=== PATIENT | male | born 1960 | race Two or more races ===

== ENCOUNTER 2018-01-12 07:50 | Inpatient (IN) | payer BC ==
[~2018-01-12] VITALS: Ht 180.3 cm; Wt 73.9 kg
[2018-01-12 08:30] VITALS: BP 108/71
--- NOTE | 2018-01-12 08:40 | NUR ---
MS RN OPENING NOTE PATIENT CAME IN FOR DAY SURGERY AT 0800. SCHEDULED TO HAVE THE PROCEDURE AT 1000. AMBULATORY, ALERT ORIENTED X4, IN NO APPARENT DISTRESS OR DISCOMFORT AT THIS TIME. RESPIRATION EVEN AND UNLABORED. ABLE TO VERBALIZE NEEDS. PATIENT MADE COMFORTABLE IN BED. ALL BELONGINGS ARE WITH PATIENT'S . COMPREHENSIVE ASSESSMENT COMPLETE. VITAL SIGNS TAKEN AND RECORDED. HISTORY REVIEWED. IV ACCESS ESTABLISHED ON THE LEFT HAND, 20G, SL. PATENT AND INTACT, FLASHED WITH NS. CONSENT SIGNED AND PLACED IN CHART. CHECKLIST COMPLETE. NPO STATUS VERIFIED. AT BEDSIDE, SAFETY MEASURES IMPLEMENTED, BED IN LOW LOCKED POSITION, SIDE RAILS UP X2, CALL LIGHT WITHIN EASY REACH. WILL CARRY OUT ALL THE ORDERS, PREP THE PATIENT FOR UPCOMING PROCEDURE AND CONTINUE TO MONITOR.
[2018-01-12 09:06] LABS: INR 0.92 (0.87-1.13)
[2018-01-12 09:08] LABS: BASOPHILS % (AUTO) 0.3 % (0.0-2.0); EOSINOPHILS % (AUTO) 2.9 % (0.0-6.0); HEMATOCRIT 46 % (39-51); HEMOGLOBIN 15.5 g/dL (13.5-17.5); LYMPHOCYTES % (AUTO) 32.2 % (20.0-44.0); MEAN CORPUSCULAR HEMOGLOBIN 30 PG (26.0-33.0); MEAN CORPUSCULAR HGB CONC 34 g/dl (31.0-36.0); MEAN CORPUSCULAR VOLUME 87 fL (80-96); MONOCYTES % (AUTO) 5.3 % (2.0-12.0); NEUTROPHILS % (AUTO) 59.3 % (43.0-81.0); PLATELET COUNT (AUTO) 221 /CMM (150-450); RDW COEFFICIENT OF VARIATION 12.4 (11.5-15.0); RED BLOOD CELL COUNT(AUTO) 5.24 MIL/uL (4.5-6.0); WHITE BLOOD COUNT (AUTO) 6.2 K/uL (4.3-11.0)
[2018-01-12 09:09] LABS: MONOCYTES # (AUTO) 0.3 /CMM (0.1-1.30); NEUTROPHILS # (AUTO) 3.7 /CMM (1.8-8.9)
--- NOTE | 2018-01-12 09:45 | NUR ---
PATIENT WAS PICKED UP BY THE OR NURSES AT THIS TIME. PATIENT IS ALERT AND STABLE AT THE TIME OF TRANSFER.
[2018-01-12] MEDS ORDERED: ROSU10TA PO (09:46)
[2018-01-12] MEDS ORDERED: ASPI-605 PO (09:46)
[2018-01-12] MEDS ORDERED: LIDOCAINE 0.5% HCL 50 ML VIAL ONE (10:17)
[2018-01-12] MEDS ORDERED: LIDOCAINE 0.5%-EPI 1:200,000 50 ML VIAL ONE (10:17)
[2018-01-12] MEDS ORDERED: ANESTHESIA TRAY IN PYXIS 1 EA TRAY MC ONE (10:17)
[2018-01-12 11:11] LABS: APPEARANCE,URINE CLEAR (CLEAR); BILIRUBIN,URINE NEGATIVE (NEGATIVE); BLOOD, URINE NEGATIVE Ery/uL (NEGATIVE); COLOR,URINE YELLOW (YELLOW); KETONES,URINE NEGATIVE (NEGATIVE); LEUKOCYTE ESTERASE ,URINE NEGATIVE (NEGATIVE); NITRITE, URINE NEGATIVE (NEGATIVE); PROTEIN,URINE NEGATIVE (NEGATIVE); UGLUCOSE NEGATIVE (NEGATIVE); UROBILINOGEN,URINE 0.2 EU/dL (0.2)
[2018-01-12] MEDS ORDERED: ONDANSETRON HCL/PF 4 MG/2 ML VIAL ONE (11:38)
[2018-01-12] MEDS ORDERED: HYDROMORPHONE INJ 2 MG/ML DISP.SYRIN ONE (11:39)
[2018-01-12] MEDS ORDERED: ONDANSETRON HCL/PF 4 MG/2 ML VIAL IVP PRN (12:00)
[2018-01-12] MEDS ORDERED: HYDROCODONE/APAP 5/325MG 1 EACH TABLET PO PRN ×2 (12:00)
[2018-01-12] MEDS ORDERED: ACETAMINOPHEN 325 MG TABLET PO PRN (12:00)
[2018-01-12] MEDS ORDERED: MORPHINE SULFATE INJ 2 MG/ML DISP.SYRIN IV ONE (12:00)
[2018-01-12] MEDS ORDERED: FENTANYL PF 100MCG/2ML AMPUL ONE (12:05)
[2018-01-12 13:00] VITALS: BP 122/79
--- NOTE | 2018-01-12 13:00 | NUR ---
PATIENT WAS BROUGHT BACK FROM THE OR, STABLE, VITAL SIGNS ARE STABLE. ALERT ORIENTED X4. RESPIRATIONS EVEN AND UNLABORED. REPORTS MILD PAIN AT THIS TIME. PAIN MEDICATION WAS GIVEN WITHIN THE LAST HOUR. NON-PHARMACOLOGICAL PAIN MANAGEMENT IMPLEMENTED, ICE PACK APPLIED TO THE ABDOMEN. DENIES NAUSEA. ORDER IN PLACE FOR CLEAR LIQUID DIET, ADVANCE TOLERATED TO SOFT. PATIENT IS TO BE MONITORED AND DISCHARGED IF CRITERIA IS MET. WILL CONTINUE TO MONITOR.
--- NOTE | 2018-01-12 14:00 | NUR ---
PATIENT IS STABLE IN BED, TOLERATED CLEAR LIQUIDS WELL, DENIES PAIN AND DISCOMFORT AT THIS TIME.
--- NOTE | 2018-01-12 15:35 | NUR ---
PATIENT IS STABLE, ALERT ORIENTED X4. DENIES PAIN AND SOB. ABLE TO TOLERATE SOFT DIET. DENIES NAUSEA AND VOMITING. AMBULATED TO THE BATHROOM WITH STANDBY ASSISTANCE. VOIDED AT THIS TIME. WILL CONTINUE TO MONITOR.
[2018-01-12 16:00] VITALS: BP 101/54
--- NOTE | 2018-01-12 16:30 | NUR ---
MS RN DC NOTE PATIENT IS STABLE. VITAL SIGNS STABLE. ALERT ORIENTED X4, IN NO APPARENT DISTRESS OR DISCOMFORT AT THIS TIME. DENIES PAIN AND SOB AT THIS TIME. RESPIRATIONS EVEN AND UNLABORED. PATIENT HAS MET THE CRITERIA TO BE DISCHARGED HOME PER DR. MELENDEZ. PATIENT TOLERATED LIQUIDS, FOOD, AMBULATED INDEPENDENTLY TO THE BATHROOM AND VOIDED. CHARGE NURSE NOTIFIED. PATIENT TO BE DC-ED HOME.
--- NOTE | 2018-01-12 17:30 | NUR ---
MS RN DC NOTES PATIENT IS STABLE, VITAL SIGNS STABLE. ALERT ORIENTED X4, AMBULATES, DENIES PAIN. DENIES NAUSEA. DISCHARGE INSTRUCTIONS DISCUSSED WITH THE PATIENT AND THE . NEW PRESCRIBED MEDICATION INSTRUCTIONS GIVEN. ALL THE PHYSICIAN'S INSTRUCTIONS GIVEN. ALL THE CLOTHES AND BELONGINGS WAS KEPT BY PATIENT'S WHO LATER ON PROVIDED THEM BACK TO THE PATIENT. DISCHARGE INSTRUCTIONS SIGNED AND ACKNOWLEDGED BY THE PATIENT. COPIES MADE AND PLACED IN CHART. IVC REMOVED, TIP INTACT. ID BAND REMOVED. PATIENT LEFT THE FACILITY ON A WHEELCHAIR WITH THE ASSISTANCE OF SAULO DOAN. WAITING DOWNSTAIRS TO PICK HIM UP.
--- NOTE | 2018-01-12 19:11 | NUR ---
MS SAMIRA DC NOTE PATIENT IS STABLE. VITAL SIGNS STABLE. ALERT ORIENTED X4, IN NO APPARENT DISTRESS OR DISCOMFORT AT THIS TIME. DENIES PAIN AND SOB AT THIS TIME. RESPIRATIONS EVEN AND UNLABORED. PATIENT HAS MET THE CRITERIA TO BE DISCHARGED HOME PER DR. MELENDEZ. PATIENT TOLERATED LIQUIDS, FOOD, AMBULATED INDEPENDENTLY TO THE BATHROOM AND VOIDED. CHARGE NURSE NOTIFIED. PATIENT TO BE DC-ED HOME. Addendum: 01/12/18 at 1914 by LINDA KENDRICK RN WRONG TIME FOR THE NOTE
== END 2018-01-12 17:30 | disposition home or self-care (01) | DRG 419 ==
LOC: DS 07:50 → MED 09:06
PROVIDERS: ADMIT Surgery; ATTEND Surgery
PROC: 0FT44ZZ Resection of Gallbladder, Percutaneous Endoscopic Approach (ICD-10-PCS; principal; 2018-01-12 10:00)
DX: K82.9 Disease of gallbladder, unspecified (principal)
CPT/HCPCS: 36415; 81000-TC; 85025-TC; 85610-TC; 85730-TC; J1170; J2405; J3010; J3490